=== PATIENT | female | born 1955 | race Caucasian/White ===

== ENCOUNTER 2019-01-28 21:46 | Observation (INO) ==
[2019-01-28 22:08] LABS: Basophils % 0.6 % (0.1-2.0); Eosinophils # 0.2 K/mm3 (0.0-0.4); Eosinophils % 3.2 % (0.1-12.0); Hematocrit 41.8 % (37.0-47.0); Hemoglobin 13.3 g/dL (12.2-16.2); Lymphocytes # 2.3 K/mm3 (0.7-4.5); Lymphocytes % 38.3 % (10-50); Mean Corpuscular HGB Conc 31.9 g/dL (31.8-35.4); Mean Corpuscular Volume 93.8 fl (81-99); Mean Platelet Volume 8.3 fl (7.4-10.4); Monocytes # 0.3 K/mm3 (0.1-1.0); Monocytes % 4.9 % (1.7-9.3); Neutrophils # 3.2 K/mm3 (1.8-7.8); Platelet Count 192 K/mm3 (142-424); Red Blood Count 4.45 M/mm3 (4.20-5.40); Red Cell Distribution Width 11.8 % (11.5-17.5)
[2019-01-28 22:08] LABS: Microscopic, Urine URINE MICROSCOPIC (MICROSCOPIC)
[2019-01-28 22:09] LABS: Appearance,Urine CLEAR (Clear); Bilirubin,Urine Negative (Negative); Blood, Urine Negative (Negative); Color,Urine YELLOW (Yellow); Glucose,Urine (UA) Negative (Negative); Ketones,Urine Negative (Negative); Leukocyte Esterase,Urine Negative (Negative); PH,Urine 6.5 (5.0-8.5); Protein,Urine Negative (Negative); Specific Gravity, Urine <= 1.005 (1.005-1.030); Urobilinogen,Urine 0.2 EU/dl (0.2)
[2019-01-28 22:19] LABS: Anion Gap 12.5 mEq/L (5-15); Blood Urea Nitrogen 23 mg/dL (7-18); Calcium 8.5 mg/dL (8.5-10.1); Carbon Dioxide 29 mmol/L (21.0-32.0); Chloride 103 mmol/L (98-107); Glucose 103 mg/dL (74-106); Sodium 141 mmol/L (136-145)
[2019-01-28 22:44] LABS: Erythrocyte Sedimentation Rate 17 mm/hr (0-30)
[2019-01-28 22:47] LABS: C-Reactive Protein < 0.2 mg/dL (0.0-0.9)
--- NOTE | 2019-01-28 23:19 | Emergency Department Note ---
ED Disposition Clinical Impression: Renal insufficiency Chest pain Qualifiers: Chest pain type: unspecified Qualified Code(s): R07.9 - Chest pain, unspecified Disposition: Admitted as Observation Condition on Discharge: Good Referrals: Provider,Referral, [Primary Care Provider] - - Critical Care Critical Care Time: No Attestation: On 01/28/19, the high probability of a clinically significant, sudden or life threatening deterioration of the following system(s) required my full and direct attention, intervention and personal management. The time I documented below is in addition to time spent performing reported procedures but includes the following listed in this critical care notation. Medical Decision Making - Medical Records Medical records reviewed: Yes: I reviewed the patient's medical records. - New Inquiry Pt receiving controlled substance: No Vital Signs: 01/28/19 21:47 Temperature 97.8 F Temperature Source Oral Pulse Rate [Left Radial] 68 Respiratory Rate 14 Blood Pressure [Right Arm] 163/97 H Blood Pressure Mean [Right Arm] 119 Blood Pressure Source [Right Arm] Automatic Cuff Blood Pressure Position [Right Arm] Sitting 02 Sat by Pulse Oximetry 99 Oxygen Delivery Method Room Air - Lab Data Lab results reviewed: Yes: I reviewed the patient's lab results. Lab Results 01/28/19 21:50: WBC 6.0, RBC 4.45, Hgb 13.3, Hct 41.8, MCV 93.8, MCH 29.9, MCHC 31.9, RDW 11.8, Plt Count 192, MPV 8.3, Neut % (Auto) 53.0, Lymph % (Auto) 38.3, Mcnairy % (Auto) 4.9, Eos % (Auto) 3.2, Baso % (Auto) 0.6, Neut # (Auto) 3.2, Lymph # (Auto) 2.3, Mcnairy # (Auto) 0.3, Eos # (Auto) 0.2, Baso # (Auto) 0.0, ESR 17 01/28/19 21:50: Sodium 141, Potassium 3.5, Chloride 103, Carbon Dioxide 29, Anion Gap 12.5, BUN 23 H, Creatinine 1.04 H, Estimated Creat Clear 59, Estimated GFR 54 L, Est GFR ( Amer) 65, Glucose 103, Calcium 8.5, Troponin I < 0.02, C-Reactive Protein < 0.2 01/28/19 21:53: Urine Color Yellow, Urine Appearance Clear, Urine pH 6.5, Ur Specific Sharps <= 1.005, Urine Protein Negative, Urine Glucose (UA) Negative, Urine Ketones Negative, Urine Blood Negative, Urine Nitrate Negative, Urine Bilirubin Negative, Urine Urobilinogen 0.2, Ur Leukocyte Esterase Negative, Ur Squamous Epith Cells 5-10, Ur Renal Epithelial Cell 3-5 Result diagrams: 01/28/19 21:50 01/28/19 21:50 Orders (Tests/Meds): ORDERS Category Date Time Status CT head/brain wo con Stat Cat Scan 01/28/19 22:42 Taken XR chest 2V Stat Exams 01/28/19 21:56 Taken Troponin I Q3H Lab 01/29/19 01:00 Ordered Troponin I Q3H Lab 01/29/19 04:00 Ordered - Radiology Data #1 Image(s): Chest Image Reviewed: Yes I reviewed the patient's radiology image Preliminary Findings: Normal/NAD - CT Data CT Scan: Head Time Received: 23:[address] Reviewed: Yes: I have viewed the radiologist's interpretation Preliminary Findings: Normal/NAD - ECG Data Tracing #1 Normal Sinus Rhythm: Yes Ischemic changes: non-specific ST-T wave changes - Physician Consults Physician Consulted: pennie Reason -: Pt condition - FRANKIE Score for Non-Stemi Age of Patient: 60-69 years old Heart Rate: 50-69 bpm Systolic Blood Pressure: 160-199 mmHg Serum Creatinine: 0.80-1.19 mg/dl CHF Killip Class: I-No CHF Other Risk Factors: None Non-Stemi Risk Score: 78 General Adult HPI - General Chief complaint: PAIN Stated complaint: LEFT ARM PAIN Time Seen by Provider: 01/28/19 21:55 Mode of Arrival: Ambulatory Source of Information: Patient, Spouse, Medical Record Limitations: No Limitations Description of Symptoms (Recalled from ER Triage Doc. by RN): PT STATED HER LEFT ARM STARTED HURTING THIS MORNING THAT RADIATING UP HER NECK AND CAUSED HER TO HAVE AN INTENSE HEADACHE LIKE SHE HAS NEVER FELT BEFORE. SINCE THEN HER HEADACHE HAS SUBSIDED BUT PT STATED HER LEFT ARM " JUST DOESN'T FEEL RIGHT." - History of Present Illness HPI narrative: pt with lt upper ext pain over the last few weeks with vague lt chest discomfort - she had episode of occipital askew earlier today w/o focal no syncope neuro sx and Onset (ago): hour(s) Location: upper extremity Severity: moderate Quality: dull Consistency: intermittent Associated symptoms: chest pain Treatments prior to arrival: none - Related Data Home Medications Medication Instructions Recorded Confirmed No Known Home Medications 01/28/19 01/28/19 Allergies Allergy/AdvReac Type Severity Reaction Status Date / Time Penicillins Allergy Verified 01/28/19 21:54 [facility] History - Hepatitis A Screen Drug use history?: No High risk sexual behaviors?: No History of sexually transmitted infection?: No Currently employed?: No Childcare worker?: No Do you have indoor plumbing?: Yes Do you have electricity?: Yes Attestation statement:: This patient has been screened for Hepatitis A risk factors. I have reviewed the patient's past medical history: Yes - Social History Alcohol Intake: never Occupational Status: employed Household Members: spouse ROS Obtained: Yes All systems reviewed & no additional complaints - Constitutional Constitutional: Denies fever(s) - Eyes Eyes: Denies change in vision - ENT Ears, Nose, Mouth, and Throat: Denies sore throat - Cardiovascular Cardiovascular: Reports as per HPI, Reports chest pain, Reports chest pain at rest, Denies dyspnea, Denies palpitations, Reports radiating jaw, neck or arm pain - Respiratory Respiratory: No cough - Gastrointestinal Gastrointestingal: Denies: abdominal pain - Genitourinary Female Genitourinary: Denies pelvic pain - Integumentary/Breasts Skin/Breast: Denies rash - Neurologic Neurologic: Reports as per HPI, Denies abnormal speech, Denies focal weakness, Reports headache(s), Denies seizure-like activity Physical Exam - General General appearance: alert - Head Head exam: normocephalic - Eye Eye exam: Present: PERRL, EOMI - ENT ENT exam: Present: mucous membranes moist - Neck Neck exam: Present: trachea midline - Respiratory Respiratory exam: Present: normal lung sounds bilaterally. Absent: respiratory distress - Cardiovascular Cardiovascular exam: Present: regular rate, systolic murmur, +S4, other (no b ruits ) - Abdominal Exam Abdominal exam: Present: soft - Extremities Exam Extremities exam: Present: normal inspection - Neurological Exam Neurological exam: Present: alert, oriented X3, CN II-XII intact, normal gait. Absent: motor sensory deficit - Psychiatric Psychiatric exam: Present: normal affect - Skin Skin exam: Absent: rash
[2019-01-29 04:27] LABS: Basophils % 0.3 % (0.1-2.0); Eosinophils # 0.2 K/mm3 (0.0-0.4); Eosinophils % 2.5 % (0.1-12.0); Hematocrit 41.6 % (37.0-47.0); Hemoglobin 13.2 g/dL (12.2-16.2); Lymphocytes # 1.8 K/mm3 (0.7-4.5); Lymphocytes % 21.1 % (10-50); Mean Corpuscular HGB Conc 31.8 g/dL (31.8-35.4); Mean Corpuscular Volume 96.5 fl (81-99); Mean Platelet Volume 8.7 fl (7.4-10.4); Monocytes # 0.4 K/mm3 (0.1-1.0); Monocytes % 5.2 % (1.7-9.3); Neutrophils # 5.9 K/mm3 (1.8-7.8); Platelet Count 180 K/mm3 (142-424); Red Blood Count 4.31 M/mm3 (4.20-5.40); White Blood Count 8.3 K/mm3 (4.8-10.8)
[2019-01-29 04:39] LABS: Anion Gap 14.2 mEq/L (5-15); Blood Urea Nitrogen 19 mg/dL (7-18); Calcium 8.5 mg/dL (8.5-10.1); Carbon Dioxide 28 mmol/L (21.0-32.0); Chloride 106 mmol/L (98-107); Chol/HDL Ratio 2.9 (1-3.5); Cholesterol 212 mg/dL (140-200); Glucose 109 mg/dL (74-106); HDL Cholesterol 73 mg/dL (29-89); LDL Cholesterol 126 mg/dL (0-130); Sodium 144 mmol/L (136-145); Triglycerides 66 mg/dL (30-200); VLDL Cholesterol 13 mg/dL (0-40)
--- NOTE | 2019-01-29 07:22 | Pharmacy Consult Notes ---
[facility] Pharmacy VTE Monitoring - Patient Demographics Admission date: 01/28/19 Report Date: 01/29/19 Time: 07:21 Allergies/Adverse Reactions: Patient Allergies Penicillins Allergy (Verified 01/28/19 21:54) Height: 1.63 m Weight: 66.338 kg Patient Problems: Current Active Problems Chest pain (Acute) Renal insufficiency (Acute) - VTE Risk Labs: VTE Related Lab Results Hgb 13.2 g/dL (12.2-16.2) 01/29/19 04:15 Hct 41.6 % (37.0-47.0) 01/29/19 04:15 Plt Count 180 K/mm3 (142-424) 01/29/19 04:15 BUN 19 mg/dL (7-18) H 01/29/19 04:15 Creatinine 0.95 mg/dL (0.55-1.02) 01/29/19 04:15 Estimated Creat Clear 60 mL/min (50-200) 01/29/19 04:15 VTE Score: 2 VTE Risk Level: Very Low Risk - Prophylaxis VTE Prophylaxis Ordered?: Yes Types of VTE Prophylaxis: TEDS Knee High Location of Applied Device: Bilateral Lower Extremeties - VTE Diagnosis Confirmed Treatment or plan recommended: Continue Current Treatment
--- NOTE | 2019-01-29 10:13 | Electrocardiograph Report ---
APPROVED REPORT Exam: Resting ECG HR:73 bpm ECG Measurements Heart Rate 73 AXES NC 160 P 78 QRSd 64 QRS 34 QT 406 T50 QTc 447 <Conclusion> Normal sinus rhythm Possible Left atrial enlargement Borderline ECG Electronically signed by : Wei Wagner, 01/29/2019 10:13:29
--- NOTE | 2019-01-29 10:32 | Consult Report ---
History of Present Illness Consult date: 01/29/19 Requesting physician: Sourav Bhatti Chief complaint: Left arm pain and numbness History of present illness: This is a 63-year-old female who was admitted to the hospital secondary to left arm pain and numbness. The patient states that she has been having this left arm pain and numbness for the last several months. She states that it comes and goes. She states that it roll randomly occur even without use of the left arm. She does exercise regularly and does not notice the left arm pain and numbness while exercising, it just occurs randomly. The patient denies any chest pain or pressure. She states that she has never experienced any chest pain. Yesterday her left arm was painful and numb and just did not feel right. She then had sudden onset of a severe headache which had never happened before. The patient states that she just did not feel right and decided to come into the emergency department to be evaluated. The CT of her brain without contrast was negative. She has ruled out for an GA. She denies any chest pain, pressure, shortness of breath, edema. She also denies any fever, chills, nausea, vomiting, diarrhea, PND or orthopnea. She denies tobacco use. She denies any history of coronary artery disease or GA. She denies any family history of coronary artery disease or GA. [facility] History I have reviewed the patient's past medical history: Yes *Have you ever received a pneumonia vaccine?: No *Have you received a flu vaccine this season?: No Other Surgeries: Yes: Appendectomy, Hernia Repair - *Social History Educational Level: Attended College Smoking Status: Never smoker Alcohol Intake: current Alcohol Intake Frequency:: holidays/special occasions only *Occupational Status:: employed Household Members: spouse *Travel in the last 8 weeks: Inside the [facility] Family Hx:: Cancer, Diabetes, Hyperlipidemia, Hypertension Meds Home Medications Medication Instructions Recorded Confirmed Type No Known Home Medications 01/28/19 01/29/19 History Allergies Allergy/AdvReac Type Severity Reaction Status Date / Time Penicillins Allergy Verified 01/28/19 21:54 Review of Systems - Review of Systems Review of systems:: pertinent systems reviewed and negative unless documented below - *Musculoskeletal Reports numbness (left arm) Comments: Left arm pain - *Neurologic Reports headache(s), Denies abnormal speech, Denies localized weakness, Denies seizure-like activity Exam Vital signs and Labs for Last 24 Hours: Temp Pulse Resp BP Pulse Ox 98.5 F 67 20 115/70 97 01/29/19 08:00 01/29/19 08:00 01/29/19 08:00 01/29/19 08:00 01/29/19 08:00 Laboratory Results - last 24 hr 01/28/19 21:50: WBC 6.0, RBC 4.45, Hgb 13.3, Hct 41.8, MCV 93.8, MCH 29.9, MCHC 31.9, RDW 11.8, Plt Count 192, MPV 8.3, Neut % (Auto) 53.0, Lymph % (Auto) 38.3, Bulloch % (Auto) 4.9, Eos % (Auto) 3.2, Baso % (Auto) 0.6, Neut # (Auto) 3.2, Lymph # (Auto) 2.3, Bulloch # (Auto) 0.3, Eos # (Auto) 0.2, Baso # (Auto) 0.0, ESR 17 01/28/19 21:50: Sodium 141, Potassium 3.5, Chloride 103, Carbon Dioxide 29, Anion Gap 12.5, BUN 23 H, Creatinine 1.04 H, Estimated Creat Clear 59, Estimated GFR 54 L, Est GFR ( Amer) 65, Glucose 103, Calcium 8.5, Troponin I < 0.02, C-Reactive Protein < 0.2 01/28/19 21:53: Urine Color Yellow, Urine Appearance Clear, Urine pH 6.5, Ur Specific Haines <= 1.005, Urine Protein Negative, Urine Glucose (UA) Negative, Urine Ketones Negative, Urine Blood Negative, Urine Nitrate Negative, Urine Bilirubin Negative, Urine Urobilinogen 0.2, Ur Leukocyte Esterase Negative, Ur Squamous Epith Cells 5-10, Ur Renal Epithelial Cell 3-5 01/29/19 01:10: Troponin I < 0.02 01/29/19 04:15: WBC 8.3 D, RBC 4.31, Hgb 13.2, Hct 41.6, MCV 96.5, MCH 30.7, MCHC 31.8, RDW 12.0, Plt Count 180, MPV 8.7, Neut % (Auto) 71.0, Lymph % (Auto) 21.1, Bulloch % (Auto) 5.2, Eos % (Auto) 2.5, Baso % (Auto) 0.3, Neut # (Auto) 5.9, Lymph # (Auto) 1.8, Bulloch # (Auto) 0.4, Eos # (Auto) 0.2, Baso # (Auto) 0.0 01/29/19 04:15: Sodium 144, Potassium 4.2, Chloride 106, Carbon Dioxide 28, Anion Gap 14.2, BUN 19 H, Creatinine 0.95, Estimated Creat Clear 60, Estimated GFR 59, Est GFR ( Amer) 72, Glucose 109 H, Calcium 8.5, Magnesium 2.0, Troponin I < 0.02, Triglycerides 66, Cholesterol 212 H, LDL Cholesterol 126, VLDL Cholesterol 13, HDL Cholesterol 73, Cholesterol/HDL Ratio 2.9 I & O for Last 24 hours: Intake & Output 01/26/19 01/27/19 01/28/19 01/29/19 23:59 23:59 23:59 23:59 Intake Total 0 / 0 Balance 0 / 0 Weight 146 lb 4 oz 146 lb 4.004 oz Narrative: Her EKG is sinus rhythm with a rate of 73. - Constitutional no acute distress, average body habitus - *Routine HEENT Exam Head: Present: normocephalic Eye: Present: EOMI, PERRL ENT: Present: mucous membranes moist - *Routine Neck Exam Present: supple. Absent: lymphadenopathy - *Routine Respiratory Exam Present: CTA bilaterally - *Routine Cardiovascular Exam Present: RRR, Normal S1, Normal S2. Absent: murmur - *Routine Abdominal Exam Present: soft, normoactive bowel sounds. Absent: tenderness, distended - *Routine Extremities Exam Present: full ROM, pulses intact, normal capillary refill. Absent: cyanosis, clubbing, edema - *Routine Skin Exam Present: intact, warm. Absent: erythema, rash - *Routine Neurological Exam Present: alert, oriented X3, CN II-XII intact. Absent: sensory deficit, motor deficit - Routine Psychiatric Exam Present: normal affect, normal thought process - Detailed Eye Exam Eyelids: Left normal inspection Assessment and Plan (1) Left arm pain Current visit: Yes Status: Acute Category: Medical Code(s): M79.602 - Pain in left arm (2) Left arm numbness Current visit: Yes Status: Acute Category: Medical Code(s): R20.0 - Anesthesia of skin (3) Headache Current visit: Yes Status: Acute Category: Medical Code(s): R51 - Headache - Assessment and plan all Dx Assessment and Plan for all problems:: Plan: 1. The patient was admitted to the hospital with left arm pain and numbness. She states his left arm pain and numbness is been going on for several months but yesterday and new onset severe headache was associated with the left arm pain and numbness which was new. The patient states the headache was severe and she just did not feel right. She states that the headache is better but her arm pain and numbness is still there. She denies any chest pain or pressure. She had a CT of the head without contrast which showed no acute abnormalities. Will obtain a CTA of the brain today to rule out any aneurysms due to her severe headache. 2. We will get a carotid ultrasound secondary to her left arm pain and numbness as well as headache. 3. She denies any chest pain or pressure. She has ruled out for an GA at this time. No plans for invasive cardiac testing. May consider an ischemic evaluation after she has the CTA of her brain and the carotid ultrasound. 4. Her echocardiogram is currently pending. 5. Her LDL goal is less than 100. Her LDL is 126. 6. Her blood pressure is well controlled. 7. Further recommendations will be made pending the patient's response to treatment and the results of her brain CTA and carotid ultrasound. Thank you for the opportunity to help participate in the care of this patient.
--- NOTE | 2019-01-29 15:07 | History & Physical Report ---
*Admission Date: 01/28/19 *Chief complaint: lt arm pain *History of present illness: this wf presented to ed with hx of intermittent lt upper ext pain with some discomfort to ant chest - however the morning of ed visit she has severe occipital askew w/o loc or speech or visual sx- no prev similar episode - pt was admitted for eval - [facility] History I have reviewed the patient's past medical history: Yes *Have you ever received a pneumonia vaccine?: No *Have you received a flu vaccine this season?: No Other Surgeries: Yes: Appendectomy, Hernia Repair - *Social History Educational Level: Attended College Smoking Status: Never smoker Alcohol Intake: current Alcohol Intake Frequency:: holidays/special occasions only *Occupational Status:: employed Household Members: spouse *Travel in the last 8 weeks: Inside the [place] Family Hx:: Cancer, Diabetes, Hyperlipidemia, Hypertension Review of Systems - Review of Systems Review of systems:: pertinent systems reviewed and negative unless documented below - Constitutional Denies fever(s), Denies headache(s) - Eyes Denies change in vision - ENT Denies sore throat - *Cardiovascular Denies chest pain at rest - *Respiratory Denies cough - *Gastrointestinal Denies abdominal pain - *Genitourinary Denies blood in urine - *Musculoskeletal Denies joint pain - Integumentary/Breasts Denies rash - *Neurologic Reports headache(s), Reports numbness (left arm), Denies abnormal speech, Denies localized weakness, Denies seizure-like activity - Psychiatric Denies anxiety Meds Home Medications Medication Instructions Recorded Confirmed Type No Known Home Medications 01/28/19 01/29/19 History Allergies Allergy/AdvReac Type Severity Reaction Status Date / Time Penicillins Allergy Verified 01/28/19 21:54 Exam Vital signs and Labs for Last 24 Hours: Temp Pulse Resp BP Pulse Ox 98.5 F 62 20 135/72 97 01/29/19 13:30 01/29/19 13:30 01/29/19 13:30 01/29/19 13:30 01/29/19 13:30 Laboratory Results - last 24 hr 01/28/19 21:50: WBC 6.0, RBC 4.45, Hgb 13.3, Hct 41.8, MCV 93.8, MCH 29.9, MCHC 31.9, RDW 11.8, Plt Count 192, MPV 8.3, Neut % (Auto) 53.0, Lymph % (Auto) 38.3, Dukes % (Auto) 4.9, Eos % (Auto) 3.2, Baso % (Auto) 0.6, Neut # (Auto) 3.2, Lymph # (Auto) 2.3, Dukes # (Auto) 0.3, Eos # (Auto) 0.2, Baso # (Auto) 0.0, ESR 17 01/28/19 21:50: Sodium 141, Potassium 3.5, Chloride 103, Carbon Dioxide 29, Anion Gap 12.5, BUN 23 H, Creatinine 1.04 H, Estimated Creat Clear 59, Estimated GFR 54 L, Est GFR ( Amer) 65, Glucose 103, Calcium 8.5, Troponin I < 0.02, C-Reactive Protein < 0.2 01/28/19 21:53: Urine Color Yellow, Urine Appearance Clear, Urine pH 6.5, Ur Specific Tamms <= 1.005, Urine Protein Negative, Urine Glucose (UA) Negative, Urine Ketones Negative, Urine Blood Negative, Urine Nitrate Negative, Urine Bilirubin Negative, Urine Urobilinogen 0.2, Ur Leukocyte Esterase Negative, Ur Squamous Epith Cells 5-10, Ur Renal Epithelial Cell 3-5 01/29/19 01:10: Troponin I < 0.02 01/29/19 04:15: WBC 8.3 D, RBC 4.31, Hgb 13.2, Hct 41.6, MCV 96.5, MCH 30.7, MCHC 31.8, RDW 12.0, Plt Count 180, MPV 8.7, Neut % (Auto) 71.0, Lymph % (Auto) 21.1, Dukes % (Auto) 5.2, Eos % (Auto) 2.5, Baso % (Auto) 0.3, Neut # (Auto) 5.9, Lymph # (Auto) 1.8, Dukes # (Auto) 0.4, Eos # (Auto) 0.2, Baso # (Auto) 0.0 01/29/19 04:15: Sodium 144, Potassium 4.2, Chloride 106, Carbon Dioxide 28, Anion Gap 14.2, BUN 19 H, Creatinine 0.95, Estimated Creat Clear 60, Estimated GFR 59, Est GFR ( Amer) 72, Glucose 109 H, Calcium 8.5, Magnesium 2.0, Troponin I < 0.02, Triglycerides 66, Cholesterol 212 H, LDL Cholesterol 126, VLDL Cholesterol 13, HDL Cholesterol 73, Cholesterol/HDL Ratio 2.9 I & O for Last 24 hours: Intake & Output 01/27/19 01/28/19 01/29/19 01/30/19 11:59 11:59 11:59 11:59 Intake Total 0 / 0 Output Total 0 / 0 Balance 0 / 0 0 / 0 Weight 146 lb 4.004 oz - Constitutional no acute distress - *Routine HEENT Exam Head: Present: normocephalic Eye: Present: EOMI, PERRL ENT: Present: mucous membranes dry - *Routine Neck Exam Present: supple. Absent: carotid bruit - *Routine Respiratory Exam Present: CTA bilaterally - *Routine Cardiovascular Exam Present: RRR, murmur - *Routine Abdominal Exam Present: soft - *Routine Extremities Exam Absent: calf tenderness - *Routine Skin Exam Present: intact - *Routine Neurological Exam Present: alert, oriented X3, CN II-XII intact - Routine Psychiatric Exam Present: normal affect Assessment and Plan (1) Left arm pain Current visit: Yes Status: Acute Category: Medical Code(s): M79.602 - Pain in left arm (2) Left arm numbness Current visit: Yes Status: Acute Category: Medical Code(s): R20.0 - Anesthesia of skin (3) Headache Current visit: Yes Status: Acute Category: Medical Code(s): R51 - Headache
--- NOTE | 2019-01-29 19:08 | Cardiology Report ---
APPROVED REPORT EXAM: Comprehensive 2D, Doppler, and color-flow Echocardiogram Command Center Officer: Georgia Hendrix CRT Ht: 5 ft 4 in Wt: 150lbs BSA: 1.73 BP: 163/97 mmHg Indications: cp 2D Dimensions LVOT 1.84 cm (M/F) 1.5-2.5 M-Mode Dimensions RVDd 1.90 cm (0.9-2.6)LVDd 4.68 cm (3.5-5.7) LVDs 3.10 cm (3.5-5.7)IVSd 1.10 cm (0.6-1.1) PWd 0.62 cm (0.6-1.1)EF (Teich) 62.60% FS 33.80% EDV (Teich) 101.30 mL ESV (Teich) 37.90 mL LV Diastology E/A Ratio 1.08 Mitral Valve MV A Velocity 67.00 (40-130 cm/s) Left Ventricle Left atrium is mildly enlarged, left ventricle is normal size, mild concentric left ventricular hypertrophy, visually estimated ejection fraction 55% with no regional wall motion abnormality, grade 1 diastolic dysfunction seen without tissue Doppler evidence of raise left atrial pressure. Right atrium right atrium and right ventricular normal size and contractility. Aortic Valve Aortic valve is minimally thickened and fibrosed, there is no aortic stenosis aortic insufficiency. Mitral Valve Mitral valve is grossly normal, there is mild mitral regurgitation. Tricuspid Valve Tricuspid valve is grossly normal, there is mild tricuspid regurgitation. Pulmonic Valve Pulmonic valve is poorly visualized. Great Vessels Aortic root is normal size. Pericardium No significant pericardial effusion noted. Conclusion 1. Mildly enlarged left atrium, normal left ventricular size, mild concentric left ventricular hypertrophy, visually estimated ejection fraction 55% with no regional wall motion abnormality, grade 1 diastolic dysfunction seen without tissue Doppler evidence of raise left atrial pressure. 2. Mild mitral and tricuspid regurgitation. 3. No significant pericardial effusion noted. Electronically signed by : Sy Marcelo, 01/29/2019 19:07:39
--- NOTE | 2019-01-29 19:45 | Discharge Summary ---
General - General Admission date:: 01/29/19 Discharge date: 01/29/19 HPI HPI: this wf presented to ed with hx of intermittent lt upper ext pain with some discomfort to ant chest - however the morning of ed visit she has severe occipital askew w/o loc or speech or visual sx- no prev similar episode - pt was admitted for eval - Hospital Course Hospital Course: pt did well with no cardiac arrthymia and was seen by card - is a 63-year-old female who was admitted to the hospital secondary to left arm pain and numbness. The patient states that she has been having this left arm pain and numbness for the last several months. She states that it comes and goes. She states that it roll randomly occur even without use of the left arm. She does exercise regularly and does not notice the left arm pain and numbness while exercising, it just occurs randomly. The patient denies any chest pain or pressure. She states that she has never experienced any chest pain. Yesterday her left arm was painful and numb and just did not feel right. She then had sudden onset of a severe headache which had never happened before. The patient states that she just did not feel right and decided to come into the emergency department to be evaluated. The CT of her brain without contrast was negative. She has ruled out for an CA. She denies any chest pain, pressure, shortness of breath, edema. She also denies any fever, chills, nausea, vomiting, diarrhea, PND or orthopnea. She denies tobacco use. She denies any history of coronary artery disease or CA. She denies any family history of coronary artery disease or CA. he patient was admitted to the hospital with left arm pain and numbness. She states his left arm pain and numbness is been going on for several months but yesterday and new onset severe headache was associated with the left arm pain and numbness which was new. The patient states the headache was severe and she just did not feel right. She states that the headache is better but her arm domingo n and numbness is still there. She denies any chest pain or pressure. She had a CT of the head without contrast which showed no acute abnormalities. Will obtain a CTA of the brain today to rule out any aneurysms due to her severe headache. 2. We will get a carotid ultrasound secondary to her left arm pain and numbness as well as headache. 3. She denies any chest pain or pressure. She has ruled out for an CA at this time. No plans for invasive cardiac testing. May consider an ischemic evaluation after she has the CTA of her brain and the carotid ultrasound. 4. Her echocardiogram is currently pending. 5. Her LDL goal is less than 100. Her LDL is 126. 6. Her blood pressure is well controlled. 7. Further recommendations will be made pending the patient's response to treatment and the results of her brain CTA and carotid ultrasound. echo was ok and had cta pt had cta PRESSION: The 1. 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 Suggest MRA for further evaluation. 2. Mild beading of the cavernous portion of the ICAs bilaterally nonspecific ndum entered and electronically signed by Talisha Zuñiga APRN 01/29/19 15:49: Pt walked 11 minutes on Pavel Protocol. test was stopped due to leg fatigue. no cp or L arm pain. GXT is normal. CTA brain showed questionable Barbosa Aneurysm of the brain. Recommend MRI and MRA of the head with and without contrast. Will set this up now. pt had mri-MR HEAD/BRAIN WO/W CON CLINICAL INDICATION: brain aneurysm Headache COMPARISON: CT head, MRA of the same day TECHNIQUE: Routine multiplanar multi echo sequences are performed without and with gadolinium enhancement. FINDINGS: No midline shift, mass effect, intracranial hemorrhage, or hydrocephalus. No restricted diffusion. No evidence of acute infarction. No enhancing lesions. The cerebellopontine angle, cerebellum, and brainstem are unremarkable. There is opacification of the ethmoid air cells anteriorly. No sinus air-fluid level or mastoid effusion is evident. The pituitary, optic chiasm, corpus callosum, and craniocervical junction have an unremarkable appearance. IMPRESSION: Negative MRI of the brain without and with contrast. Ethmoid sinus disease Dictated by: Travon Beavers MD 01/29/2019 19:35 Electronically signed by Travon Beavers MD in [place] 01/29/2019 19:35 and mra -CEDURE: MR ANGIO HEAD WO CON CLINICAL INDICATION: brain aneurysm headache, abnormal CT a of brain. COMPARISON: CT ANGIO HEAD from 01/29/2019 TECHNIQUE: 3D [id number] images are obtained without contrast. FINDINGS: On the CT scan there was what was felt to represent a prominent infundibulum of the left posterior communicating artery from the supraclinoid portion of the left internal carotid artery. This protrusion was conical in shape however, a definite vessel was not noted at the apex of the protrusion. There was artifact from the adjacent clinoid process which could have easily obscured a small vessel. MRA was performed in hopes of seeing a small vessel emanate from the supposed infundibulum. However, there is a mild amount of motion artifact on the MRA which does somewhat obscure fine detail. IMPRESSION: Negative MRA of the brain. The infundibulum of the origin of the left posterior communicating artery noted on the CT scan is not well demonstrated due to motion artifact. Dictated by: Travon Beavers MD 01/29/2019 19:43 Electronically signed by Travon Beavers MD in [place] 01/29/2019 19:43 pt will be d/c to see pcp and neuroradiologist Objective Vital signs: Temp Pulse Resp BP Pulse Ox 98.0 F 76 20 128/70 95 01/29/19 16:00 01/29/19 16:00 01/29/19 16:00 01/29/19 16:00 01/29/19 16:00 no acute distress - *Routine HEENT Exam Head: Present: normocephalic Eye: Present: EOMI, PERRL ENT: Present: mucous membranes dry - *Routine Neck Exam Absent: JVD - *Routine Respiratory Exam Absent: respiratory distress - *Routine Cardiovascular Exam Present: RRR - *Routine Abdominal Exam Present: soft - *Routine Extremities Exam Absent: calf tenderness - *Routine Skin Exam Present: intact - *Routine Neurological Exam Present: alert - Routine Psychiatric Exam Present: normal affect Results Labs on day of discharge: Labs from last 24 hours 01/29/19 01/29/19 01/29/19 04:15 04:15 01:10 WBC 8.3 D RBC 4.31 Hgb 13.2 Hct 41.6 MCV 96.5 MCH 30.7 MCHC 31.8 RDW 12.0 Plt Count 180 MPV 8.7 Neut % (Auto) 71.0 Lymph % (Auto) 21.1 [place] % (Auto) 5.2 Eos % (Auto) 2.5 Baso % (Auto) 0.3 Neut # (Auto) 5.9 Lymph # (Auto) 1.8 [place] # (Auto) 0.4 Eos # (Auto) 0.2 Baso # (Auto) 0.0 ESR Sodium 144 Potassium 4.2 Chloride 106 Carbon Dioxide 28 Anion Gap 14.2 BUN 19 H Creatinine 0.95 Estimated Creat Clear 60 Estimated GFR 59 Est GFR ( Amer) 72 Glucose 109 H Calcium 8.5 Magnesium 2.0 Troponin I < 0.02 < 0.02 C-Reactive Protein Triglycerides 66 Cholesterol 212 H LDL Cholesterol 126 VLDL Cholesterol 13 HDL Cholesterol 73 Cholesterol/HDL Ratio 2.9 Urine Color Urine Appearance Urine pH Ur Specific [place] Urine Protein Urine Glucose (UA) Urine Ketones Urine Blood Urine Nitrate Urine Bilirubin Urine Urobilinogen Ur Leukocyte Esterase Ur Squamous Epith Cells Ur Renal Epithelial Cell 01/28/19 01/28/19 01/28/19 21:53 21:50 21:50 WBC 6.0 RBC 4.45 Hgb 13.3 Hct 41.8 MCV 93.8 MCH 29.9 MCHC 31.9 RDW 11.8 Plt Count 192 MPV 8.3 Neut % (Auto) 53.0 Lymph % (Auto) 38.3 [place] % (Auto) 4.9 Eos % (Auto) 3.2 Baso % (Auto) 0.6 Neut # (Auto) 3.2 Lymph # (Auto) 2.3 [place] # (Auto) 0.3 Eos # (Auto) 0.2 Baso # (Auto) 0.0 ESR 17 Sodium 141 Potassium 3.5 Chloride 103 Carbon Dioxide 29 Anion Gap 12.5 BUN 23 H Creatinine 1.04 H Estimated Creat Clear 59 Estimated GFR 54 L Est GFR ( Amer) 65 Glucose 103 Calcium 8.5 Magnesium Troponin I < 0.02 C-Reactive Protein < 0.2 Triglycerides Cholesterol LDL Cholesterol VLDL Cholesterol HDL Cholesterol Cholesterol/HDL Ratio Urine Color Yellow Urine Appearance Clear Urine pH 6.5 Ur Specific [place] <= 1.005 Urine Protein Negative Urine Glucose (UA) Negative Urine Ketones Negative Urine Blood Negative Urine Nitrate Negative Urine Bilirubin Negative Urine Urobilinogen 0.2 Ur Leukocyte Esterase Negative Ur Squamous Epith Cells 5-10 Ur Renal Epithelial Cell 3-5 DS: Diagnosis - Discharge Diagnosis (1) Left arm pain Status: Acute (2) Left arm numbness Status: Acute (3) Headache Status: Acute (4) Hyperlipidemia Status: Acute Discharge Plan - Patient Discharge Instructions ACTIVITY: Continue current activity DIET: continue same diet Patient Instructions: Acute Renal Failure, DI for Chest Pain - Follow up Plan Disposition: Home, Self-Shelter Medications: Home Medications Medication Instructions Recorded Confirmed Type No Known Home Medications 01/28/19 01/29/19 History Prescriptions/Medication Reconciliation: Continued No Known Home Medications - Problem Reconciliation Problems Reviewed?: Yes
--- NOTE | 2019-01-29 20:37 | Cardiology Report ---
APPROVED REPORT Exam: Exercise Treadmill Technologist: Yesica Nava, Ht: 5 ft 4 in Wt: 150 lbs BSA: 1.73 m2 HR: 77 bpm BP: 129/71 mmHg Indications: Arm pain Medical History Medications: vit. c Allergies: Penicillan Stress Test Details Test: Pavel HR Resting HR: 92 bpmMax Heart Rate (APMHR): 157 bpm Max HR Achieved: 167 bpmTarget HR (85% APMHR): 133 bpm % of APMHR: 106 Recovery HR: 90 bpm BP Resting BP: 129/71 mmHg Max BP: 180/80 mmHg Recovery BP: 114.0/76.[address] Deviation: 2 mm Clinical Reason for Termination: Target HR Achieved Stress Symptoms: Leg Fatigue Exercise duration: 11:01 min Highest Stage Achieved: Exercise capacity: 12.8 METs Stress ECG Conclusion HR achieved - 167 - stopped at 11 minutes Legs tired - denies chest pain. no arrhythmias less than 1.[address] segment changes. Normal exercise treadmill stress test Test Summary REST.......Sitting REST.......Standing REST08:490.00.092.129/ 71.. Stage 101:0010.01.7103.... Stage 102:0010.01.7102.... Stage 103:0010.01.799.150/ 80.. Stage 201:0012.02.5110.... Stage 202:0012.02.5113.... Stage 203:0012.02.5113.160/ 80.. Stage 301:0014.03.4130.... Stage 302:0014.03.4128.... Stage 303:0014.03.4142.170/ 80.. Stage 401:0016.04.2156.... Stage 402:0016.04.2163.... Stage 402:0116.04.2163...Stop exercise at 11:01 [id number]:000.00.0146.... [id number]:000.00.0116.180/ 80.. [id number]:000.00.0100.177/ 90.. VCEANRVY40:000.00.095.177/ 90.. KYYXKPGD07:000.00.091.135/ 80.. [id number]:470.00.096.114/ 76.. Electronically signed by : Sy Marcelo, 01/29/2019 20:37:01
--- NOTE | 2019-01-31 18:49 | Cardiology Report ---
APPROVED REPORT Legal Department Manager: ELENA Laterality: Bilateral Indications: arm numbness, CP Doppler Spectral Velocity Analysis ECA (R) 75.40/11.80 cm/sECA (L) 80.20/16.60 cm/s dICA (R) 67.10/22.40 cm/sdICA (L) 51.30/17.10 cm/s [place]y (R) 80.10/22.40 cm/smICA (L) 90.90/38.00 cm/s pICA (R) 74.20/22.40 cm/spICA (L) 67.40/21.90 cm/s dCCA (R) 67.70/17.70 cm/sdCCA (L) 75.40/21.20 cm/s pCCA (R) 95.70/25.10 cm/spCCA (L) 84.20/18.80 cm/s Vert (R) 38.30/12.40 cm/sVert (L) 36.40/11.80 cm/s ICA/CCA 1.10 ICA/CCA 1.20 Conclusion Duplex evaluation demonstrates stenosis of the right proximal internal carotid artery <20% with PSV <140 cm/sec, EDV <100 cm/sec, and IC/CC Ratio <4.0.Duplex evaluation demonstrates stenosis of the left proximal internal carotid artery <20% with PSV <140 cm/sec, EDV <100 cm/sec, and IC/CC Ratio <4.0. Electronically signed by : Travon Beavers MD 01/31/2019 18:48:35
--- OUTSIDE RECORDS SUMMARY | 2019-02-02 10:54 | External Medical Summary | Continuity of Care Document ---
:1955 Author Organization [facility] Address [address] [place] [address] Phone Care Team Providers Name Role Phone Gualberto Bhatti Attending Provider Provider Primary Care Provider Unavailable Kevon Coto Attending Provider Allergies, Adverse Reactions, Alerts Allergen Type Severity Reaction Last Verified Status Updated Penicillins Allergy Yes Active Medications No known medications. Problems Active Problems Medical Problem Onset Date Status Headache Active Hyperlipidemia Active Left arm pain Active Renal insufficiency Active Left arm numbness Active Chest pain Active Procedures Procedure Date Performed Status XR chest 2V January 28, [address] head/brain wo con January 28, 2019 completed ECG initial Besson January 28, 2019 completed MR head/brain wo/w con January 29, 2019 completed MR angio head wo con January 29, [address] angio head January 29, 2019 completed Relevant Diagnostic Tests and/or Laboratory Data Laboratory Results Test Date/Time Result Interpretation Reference Result Perfo rming Range Comment Site White Blood January 8.3 K/mm3 4.8-10.8 Delta: 6.0 on [facility], [address] [place] [address] 36 E Count 201801/28/19-2[address] [place] [address] 4:15am Red Blood Count January 4.31 M/mm3 4.20-5.40 [facility], [address] [place] [address] [address] [place] [address] 4:15am Hemoglobin January 13.2 g/dL 12.2-16.2 [facility], [address] [place] [address] 36 E 2018 [place] [address] 4:15am Hematocrit Dereck 41.6 % 37.0-47.0 [facility], [address] [place] [address] 36 [address] [place] [address] 4:15am Mean January 96.5 fl 81-99 [facility], [address] [place] [address] E Corpuscular 2018 [place] [address] Volume 4:15am Mean Dereck 30.7 pg 27.0-31.2 [facility], [address] [place] [address] E Corpuscular 2018 Cyntamar [place] [address] Hemoglobin 4:15am Mean Dereck 31.8 g/dL 31.8-35.4 [facility], [address] [place] [address] E Corpuscular 2018 Tri [place] [address] Hemoglobin 4:15am Concent Red Cell January 12.0 % 11.5-17.5 [facility], [address] [place] [address] E Distribution 2018 Thelmapascual [place] [address] Width 4:15am Platelet Count January 180 K/mm3 142-424 [facility], [address] [place] [address] E 2018 [place] [address] 4:15am Mean Platelet January 8.7 fl 7.4-10.4 [facility], [address] [place] [address] E Volume 2018 [place] [address] 4:15am Neutrophils (%) January 71.0 % 37.0-80.0 [facility], [address] [place] [address] E (Auto) 2018 [place] [address] 4:15am Lymphocytes (%) January 21.1 % 10-50 [facility], [address] [place] [address] 36 E (Auto) 2018 [place] [address] 4:15am Monocytes (%) January 5.2 % 1.7-9.3 [facility], [address] [place] [address] E (Auto) 2018 [place] [address] 4:15am Eosinophils (%) Dereck 2.5 % 0.1-12.0 [facility], [address] [place] [address] E (Auto) 2018 [place] [address] 4:15am Basophils (%) Dereck 0.3 % 0.1-2.0 [facility], [address] [place] [address] 36 E (Auto) 2018 [place] [address] 4:15am Neutrophils # Dereck 5.9 K/mm3 1.8-7.8 [facility], [address] [place] [address] 36 E (Auto) 2018 [place] [address] 4:15am Lymphocytes # Dereck 1.8 K/mm3 0.7-4.5 [facility], [address] [place] [address] E (Auto) 2018 [place] [address] 4:15am Monocytes # Dereck 0.4 K/mm3 0.1-1.0 [facility], [address] [place] [address] E (Auto) 2018 [place] [address] 4:15am Eosinophils # Dereck 0.2 K/mm3 0.0-0.4 [facility], [address] [place] [address] E (Auto) 2018 [place] [address] 4:15am Basophils # Dereck 0.0 K/mm3 0-0.2 [facility], [address] [place] [address] E (Auto) 2018 [place] [address] 4:15am Erythrocyte Dereck 17 mm/hr 0-30 [facility], [address] [place] [address] E Sedimentation 2018 Cyn[place] [address] Rate 9:50pm Urine Color Dereck Yellow Yellow [facility], [address] [place] [address] E 2018 [place] [address] 9:53pm Urine Dereck Clear Clear [facility], [address] [place] [address] E Appearance 2018 [place] [address] 9:53pm Urine pH Dereck 6.5 5.0-8.5 [facility], [address] [place] [address] 36 E [address] [place] [address] 9:53pm Urine Specific Dereck <= 1.005 1.005-1.03 [facility], [address] [place] [address] E [place] 2018 0 [place] [address] 9:53pm Urine Protein Dereck Negative Negative [facility], [address] [place] [address] 36 E 2018 [place] [address] 9:53pm Urine Glucose Dereck Negative Negative [facility], [address] [place] [address] E (UA) 2018 [place] [address] 9:53pm Urine Ketones Dereck Negative Negative [facility], [address] [place] [address] 36 E 2018 [place] [address] 9:53pm Urine Blood Dereck Negative Negative [facility], [address] [place] [address] E 2018 [place] [address] 9:53pm Urine Nitrate Dereck Negative Negative [facility], [address] [place] [address] E 2018 [place] [address] 9:53pm Urine Bilirubin Dereck Negative Negative [facility], [address] [place] [address] E 2018 [place] [address] 9:53pm Urine Dereck 0.2 EU/dl [facility], [address] [place] [address] E Urobilinogen 2018 Thelma [place] [address] 9:53pm Urine Leukocyte Dereck Negative Negative [facility], [address] [place] [address] E Esterase 2018 [place] [address] 9:53pm Urine Squamous January 5-10 #/hpf [facility], [address] [place] [address] E Epithelial 2018 [place] [address] Cells 9:53pm Urine Renal January 3-5 #/lpf [facility], [address] [place] [address] E Epithelial 2018 [place] [address] Cells 9:53pm Troponin I January < 0.02 0.00-0.06 *ALERT* High [facility], [address] [place] [address] E 2018 ng/ml levels of [place] [address] 4:15am Biotin can falsely depress Troponin results.Many dietary supplements promoted for hair,skin, and nail benefits contain biotin levels up to 650 times the recommended daily intake of biotin. In additon to dietary supplements, Biotin is occasionally prescribed for medical conditions. Sodium Level January 144 mmol/L 136-145 [facility], [address] [place] [address] 36 [address] [place] [address] 4:15am Potassium Level January 4.2 mmoL/L 3.5-5.1 [facility], [address] [place] [address] 36 [address] [place] [address] 4:15am Chloride Level January 106 mmol/L 98-107 [facility], [address] [place] [address] E 2018 [place] [address] 4:15am Carbon Dioxide January 28 mmol/L 21.0-32.0 [facility], [address] [place] [address] 36 E Level 2018 [place] [address] 4:15am Anion Gap January 14.2 mEq/L 5-15 [facility], [address] [place] [address] 36 E 2018 [place] [address] 4:15am Blood Urea January 19 mg/dL 7-18 [facility], [address] [place] [address] 36 E Nitrogen 2018 [place] [address] 4:15am Creatinine January 0.95 mg/dL 0.55-1.02 [facility], [address] [place] [address] 36 E 2018 [place] [address] 4:15am Estimated Dereck 60 mL/min 0-300 [facility], [address] [place] [address] E Creatinine 2018 [place] [address] Clearance 4:15am Estimated GFR January 72 ML/MIN >59 [facility], [address] [place] [address] 36 E ( 2018 [place] [address] Czech) 4:15am Estimat January 59 ml/min >59 [facility], [address] [place] [address] 36 E Glomerular 2018 [place] [address] Filtration Rate 4:15am Glucose Level January 109 mg/dL 74-106 [facility], [address] [place] [address] 36 E 2018 [place] [address] 4:15am Calcium Level January 8.5 mg/dL 8.5-10.1 [facility], [address] [place] [address] 36 E 2018 [place] [address] 4:15am Magnesium Level January 2.0 mg/dL 1.4-2.2 [facility], [address] [place] [address] 36 E 2018 [place] [address] 4:15am C-Reactive Dereck < 0.2 0.0-0.9 [facility], [address] [place] [address] 36 E Protein 2018 mg/dL [place] [address] 9:50pm Triglycerides January 66 mg/dL 30-200 [facility], [address] [place] [address] 36 E Level 2018 [place] [address] 4:15am Cholesterol January 212 mg/dL 140-200 [facility], [address] [place] [address] 36 E Level 2018 [place] [address] 4:15am LDL Cholesterol January 126 mg/dL 0-130 [facility], [address] [place] [address] 2018 [place] [address] 4:15am VLDL January 13 mg/dL 0-40 [facility], [facility] 36 E Cholesterol 2018 Tri [place] [address] 4:15am HDL Cholesterol January 73 mg/dL 29-89 [facility], [address] [place] [address] 36 E 2018 [place] [address] 4:15am Cholesterol/HDL January 2.9 1-3.5 [facility], [address] [place] [address] 36 E Ratio 2018 [place] [address] 4:15am Diagnostic Imaging Reports Report Dictated Date/Time Dictated By Status Radiology Report January 28, 2019 Travon Beavers MD completed 10:03pm [address] [place], [place] [address] XRay R eport Sig michael Patient: Yesica Medina MR#: [id number] : 1955 Acct:[id number] Age/Sex: 63 / F ADM Date: 9 Loc: 2ND 218SD-[address]: Sourav Bhatti MD Ordering Physician: Sourav Bhatti MD Date of Service: 01/28/19 Procedure(s): XR chest 2V Accession Number(s): [id number] cc: Travon Beavers MD; Provider,Referral MD~ PROCEDURE: XR CHEST 2V CLINICAL HISTORY: LEFT ARM PAIN COMPARISON: No exams were available fo r comparison FINDINGS: The cardiomediastinal silhouette and pu lmonary vascularity are within normal limits. There is some vascular crowding in the right lower lobe. No lobar consolidation or collapse. No acute bony abnormalities. IMPRESSION: No acute findings. Dictated by: Travon Beavers MD 01/29/2019 05:44 Electronically signed by Travon Beavers in OV 01/29/2019 05:44 Radiology Report January 28, 2019 Travon Beavers MD completed 11:02pm [address] [place] [address] [address] Scan Report Sig michael Patient: Yesica Medina MR#: [id number] : 1955 Acct:[id number] Age/Sex: 63 / F ADM Date: 9 Loc: - Attending Dr: Sourav Bhatti MD Ordering Physician: Sourav Bhatti MD Date of Service: 01/28/19 Procedure(s): CT head/brain wo con Accession Number(s): [id number] cc: Travon Beavers MD; Provider,Referral MD~ PROCEDURE: CT HEAD/BRAIN WO CON CLINICAL INDICATION: HEADACHE Severe headache with dizziness COMPARISON: No exams were available fo r comparison TECHNIQUE: Axial images obtained. All CT scans at the facility use one or more dose reduction, viz: automa abdoul exposure control, ma/kV adjustment per patient size (including targeted exams where dose is matched to indication, i.e. head), or i terative reconstruction technique. FINDINGS: No midline shift, mass effect, intracra nial hemorrhage, hydrocephalus, or extra-axial fluid col lection is evident. The calvarium has an unremarkable appearanc e. No mastoid effusion. Moderate mucosal thickening of the ethm oid sinus with mild sphenoid sinus mucosal thickening. IMPRESSION: 1. No acute intracranial findings. 2. Sinus disease Dictated by: Travon Beavers MD 01/29/2019 07:12 Electronically signed by Travon Beavers in [place] 01/29/2019 07:12 Radiology Report January 29, 2019 Travon Beavers MD completed 10:44am [facility] [address] [place] [facility] [address] [place] [address] Scan Report Sig michael Patient: Yesica Medina MR#: [id number] : 1955 Acct:[id number] Age/Sex: 63 / F ADM Date: 9 Loc: Attending Dr: Sourav Bhatti MD Ordering Physician: Talisha Zuñiga APRN Date of Service: 01/29/19 Procedure(s): CT angio head Accession Number(s): [id number] cc: Travon Beavers MD; Provider,Referral MD~ Procedure: CT ANGIO HEAD CLINICAL HISTORY: headache Severe headache COMPARISON: CT HEAD/BRAIN WO CON from 01/28/2019 TECHNIQUE: IV Contrast: 100ml Optiray 350 Axial images obtained with sagittal and coronal reformats. All CT scans at the facility use one or more d ose reduction, viz: automated exposure control, ma/kV adjustment per patient size (including targeted exams where dose is matched to indication, i.e. head), or iterative reconstruction technique. FINDINGS: There is a focal per true for inset the area of the ostium of the left posterior communicating artery. T his measures approximately 2.5 mm at the base and may represent an inf undibulum of the posterior communicating artery. It is difficult to ascertain if a small posterior communicating artery emanates from this area or at its base. Suggest MRA for further evaluati on. There is a small infundibulum at the right PCOM origin. No other significant anomalies are evident. Delayed images show no evidence sagitta l sinus thrombosis. No intracranial occlusive process evident. There is some mild beading of the cavernous portion of the intracr anial arteries bilaterally nonspecific. Vertebral basilar system has an unremar kable appearance. No enhancing lesions are evident. IMPRESSION: The 1. Prominent left posterior communicati ng artery infundibulum versus small saccular aneurysm. Suggest MRA f or further evaluation. 2. Mild beading of the cavernous portio n of the ICAs bilaterally nonspecific Dictated by: Travon Beavers MD 01/29/2019 11:24 Electronically signed by Travon Beavers in [place] 01/29/2019 11:24 Radiology Report January 29, 2019 Travon Beavers MD completed 6:37pm [facility] [address] [facility] [address] [place] [address] Magnetic Reso nance Report Sig michael Patient: Yesica Medina MR#: [id number] : 1955 Acct:[id number] Age/Sex: 63 / F ADM Date: 9 Loc: 218SD-[address]: Sourav Bhatti MD Ordering Physician: Talisha Zuñiga APRN Date of Service: 01/29/19 Procedure(s): MR head/brain wo/w con Accession Number(s): [id number] cc: Travon Beavers MD; Provider,Referral MD~ PROCEDURE: MR HEAD/BRAIN WO/W CON CLINICAL INDICATION: brain aneurysm Headache COMPARISON: CT head, MRA of the same d ay TECHNIQUE: Routine multiplanar multi e cho sequences are performed without and with gadolinium enhancement . FINDINGS: No midline shift, mass effect, intracra nial hemorrhage, or hydrocephalus. No restricted diffusion . No evidence of acute infarction. No enhancing lesions. The cerebellopontine angle, cerebellum, and brainstem are unremarka ble. There is opacification of the ethmoid a ir cells anteriorly. No sinus air-fluid level or mastoid effusion is evident. The pituitary, optic chiasm, corpus callosum, and craniocerv ical junction have an unremarkable appearance. IMPRESSION: Negative MRI of the brain without and w ith contrast. Ethmoid sinus disease Dictated by: Travon Beavers MD 01/29/2019 19:35 Electronically signed by Travon Beavers in [place] 01/29/2019 19:35 Radiology Report January 29, 2019 Travon Beavers MD completed 6:24pm [facility] [address] [place] [facility] [address] [place] [address] Magnetic Reso nance Report Sig michael Patient: Yesica Medina MR#: [id number] : 1955 Acct:[id number] Age/Sex: 63 / F ADM Date: 9 Loc: 218SD-[address]: Sourav Bhatti MD Ordering Physician: Talisha Zuñiga APRN Date of Service: 01/29/19 Procedure(s): MR angio head wo con Accession Number(s): [id number] cc: Travon Beavers MD; Provider,Referral MD~ PROCEDURE: MR ANGIO HEAD WO CON CLINICAL INDICATION: brain aneurysm he adache, abnormal CT a of brain. COMPARISON: CT ANGIO HEAD from 019 TECHNIQUE: 3D dlif-fi-dfwohj images ar e obtained without contrast. FINDINGS: On the CT scan there was what was felt to represent a prominent infundibulum of the left posterior comm unicating artery from the supraclinoid portion of the left consulting intern al carotid artery. This protrusion was conical in shape however , a definite vessel was not noted at the apex of the protrusion. Th ere was artifact from the adjacent clinoid process which could askew ve easily obscured a small vessel. MRA was performed in hopes of s eeing a small vessel emanate from the supposed infundibulum. However , there is a mild amount of motion artifact on the MRA which does s omewhat obscure fine detail. IMPRESSION: Negative MRA of the brain. The infundib ulum of the origin of the left posterior communicating artery noted on the CT scan is not well demonstrated due to motion artifact. Dictated by: Travon Beavers MD 01/29/2019 19:43 Electronically signed by Travon Beavers in [place] 01/29/2019 19:43 Health Concerns Concerns CHEST PAIN Advance Directives Advance Directive Response Recorded Date/Time Living Will Yes January 29, 2019 1 2:52am Chief Complaint and Reason for Visit Chief Complaint Chest Pain Reason for Visit Chest pain Headache Hyperlipidemia Left arm numbness Left arm pain Renal insufficiency Encounters Encounter Location(s) Arrival/Admit Date Discharge/Depart Date Provider(s) Discharged [facility] Physician January 29, 2019 January 29, 2019 [facility] 12:40am 7:22pm MD Magy Floor Registered [facility] Physician January 30, 2019 [facility]- 10:23am MD Recent Diagnosis Onset Date Chest pain Headache Hyperlipidemia Left arm numbness Left arm pain Renal insufficiency Assessments Follow up as ordered by primary care provider Functional Status Observation Response Date Recorded Oral Care Ability Independent January 29, 2019 1 2:52am Bathing Ability Independent January 29, 2019 1 2:52am Eating (Feeding) Ability Independent January 29 019 12:52am Toileting Ability Independent January 29, 2019 1 2:52am Ambulation Ability Independent January 29, 2019 8 :10pm Goals Acute Goals Nursing Diagnosis: Knowledge Deficit D isease/Condition Goal(s): Education of di sease process Instruction(s): Follow provider p sun/instructions (See attached discharge education) Follow/up with primary care provider as instructed in discharge packet Immunizations Immunization Event Not Given Dose Ball Thread Machine Tender Lot Number Vac cine Date Reason Number Informatio n Statement (VIS) Deta il Td, adsorbed May 05, 1996 Mental Status Observation Response Date Recorded Comprehension Ability No Impairment January 29, 2019 4:00pm Able to Read Yes January 29, 2019 1 2:52am Able to Write Yes January 29, 2019 1 2:52am Ability to Follow Directions Excellent January 12:52am Eye Contact Maintains Eye Contact January 29, 2019 12:52am Oral Expression Ability No Impairment January 29 12:52am Medical Equipment No Medical Equipment Information available Insurance Providers Guarantor Yesica Smithwonder Address [address] [place] [address] [place] [address] Contact Info. Home Phone: Payer Policy Id Coverage Id Subscriber's Subscriber Id Effective E xpiration Name Date Date Dustin Pruitt [id number] Toñito Medina [id number] Card [id number] Program Out Self Pay Self N/A Plan of Treatment See care plan goals Future Tests Future scheduled test information is unavailable Pending Tests Pending diagnostic test information is unavailable Future Visits Future appointment information is unavailable Referrals to Other Providers Reason for Referral Start Provider Provider Contact Provider Address Referral Date Information Admission to [facility] January [address] [facility] Future Procedures Future procedure information is unavailable Future Medications Future medication information is unavailable Patient Instructions Acute Renal Failure DI for Chest Pain Social History Observation Status Date of Observation Not January 28, 2019 Assigned Sex Female Vital Signs Vital Reading Result Reference Range Collection Date/ Time Height 162.56 cm January 29 5:05am Weight 66.33 kg January 29 5:05am Body Temperature 97.3 [degF] 97.6-99.6 January 29 019 8:00pm Heart Rate 80 /min 60-90 January 29 8:00pm Respiratory rate 20 /min 12-January 29 019 8:00pm Oxygen saturation by 98 % 95-100 January Pulse oximetry 8:00pm BP Systolic 119 mm[Hg] 110-140 January 29 8:00pm BP Diastolic 82 mm[Hg] 60-90 January 29 8:00pm BMI (Body Mass Index) 25.1 kg/m2 January 292018 5:05am
== END 2019-01-29 19:22 | disposition home or self-care (01) ==
LOC: EDBD → ER 21:46 → 2ND 21:46
PROVIDERS: ADMIT Emergency Medicine; ATTEND Emergency Medicine
CPT/HCPCS: 36415; 70450; 70496; 70544; 70553; 71020; 71046; 80048; 80061; 81001; 83735; 84484; 85025; 85651; 86140; 93005; 93017; 93306; 93880; 99284; G0378; Q9967